=== PATIENT | male | born 1960 | race Caucasian/White ===

== ENCOUNTER 2017-06-17 08:58 | Day surgery (SDC) | payer OTHER ==
[~2017-06-17] VITALS: Ht 172.7 cm; Wt 85.6 kg
[2017-06-17 09:25] VITALS: BP 133/89; PULSE 71; TEMP 97.4
[2017-06-17] MEDS ORDERED: NEXIUM 40MG40 MG PO (09:31)
[2017-06-17] MEDS ORDERED: ZOCOR 20MG20 MG PO (09:32)
[2017-06-17] MEDS ORDERED: MUCINEX D1 TER PO (09:33)
[2017-06-17 11:55] VITALS: BP 123/91; PULSE 72; TEMP 98.4
[2017-06-17 12:10] VITALS: BP 123/88; PULSE 68
[2017-06-17 14:02] VITALS: BP 110/77; PULSE 63
== END 2017-06-17 13:00 | disposition home or self-care (01) ==
LOC: SDCO 08:58
DX: Z12.11 Encounter for screening for malignant neoplasm of colon (principal); Z86.010 Personal history of colon polyps; D12.2 Benign neoplasm of ascending colon; D12.3 Benign neoplasm of transverse colon; K64.0 First degree hemorrhoids; K21.9 Gastro-esophageal reflux disease without esophagitis; E78.00 Pure hypercholesterolemia, unspecified
CPT/HCPCS: OP; J2250; J3010; J7030

== ENCOUNTER → 2018-08-27 | Outpatient (CLI) | payer OTHER ==
[~2018-08-27] MED LIST: MUCINEX D1 TER PO; NEXIUM 40MG40 MG PO; ZOCOR 20MG20 MG PO
== END ==
LOC: COL.RAD 10:31 → COL.LAB 10:31
DX: M41.86 Other forms of scoliosis, lumbar region (principal); M47.816 Spondylosis without myelopathy or radiculopathy, lumbar region

== ENCOUNTER → 2020-03-27 | Outpatient (CLI) | payer OTHER | END | disposition still patient (30) | LOC: COL.RAD 08:00 | DX: K21.00 Gastro-esophageal reflux disease with esophagitis, without bleeding (principal) ==